=== PATIENT | male | born 1990 | race Caucasian/White ===

== ENCOUNTER 2023-08-23 02:57 | Emergency (ER) | payer BC, OTHER ==
[~2023-08-23] VITALS: Ht 177.8 cm; Wt 74.8 kg
[2023-08-23 03:21] VITALS: BP 121/78; TEMP 97.8
[2023-08-23] MEDS ORDERED: FLUORESCEIN SODIUM OPHTH 1 EA STRIP ONE (04:03)
[2023-08-23] MEDS: FLUORESCEIN SODIUM OPHTH 1 EA STRIP OP ONE (04:04)
[2023-08-23] MEDS ORDERED: TETRAcaine 5 ML BOTTLE ONE (04:04)
[2023-08-23] MEDS: TETRACAINE HCL 0.5% OPHTALMIC 15 ML BOTTLE OP ONE (04:04)
[2023-08-23] MEDS ORDERED: ERYT3.5O9 EACHEYE (04:17)
[2023-08-23] MEDS ORDERED: KETOROLAC TROMETHAMINE INJ 30 MG/ML VIAL ONE (04:18)
[2023-08-23] MEDS: KETOROLAC TROMETHAMINE INJ 60 MG/2 ML VIAL IM ONE (04:26)
[2023-08-23] MEDS ORDERED: HYDROCODONE/APAP 10/325MG TABLET PO ONE (04:30)
[2023-08-23 04:43] VITALS: O2SAT 98
== END 2023-08-23 04:44 | disposition home or self-care (01) ==
LOC: ER 03:06
DX: S05.01XA Injury of conjunctiva and corneal abrasion without foreign body, right eye, initial encounter (principal); X58.XXXA Exposure to other specified factors, initial encounter; Y93.89 Activity, other specified; Y92.89 Other specified places as the place of occurrence of the external cause; Y99.8 Other external cause status
CPT/HCPCS: 99283; 96372; J1885